=== PATIENT | female | born 1970 | race Caucasian/White ===

== ENCOUNTER 2025-02-17 17:30 | Emergency (ER) | payer OTHER, SELFPAY ==
--- OUTSIDE RECORDS SUMMARY | 2023-09-03 15:30 | XMS_ITS ---
Author Organization [facility] [employer] [facility] ([address]) Address [address] [place] [address] Care Team Providers Care Fiscal Accounting Clerk Name Role Phone Flavia Ramirez Primary Care Provider Unavailabl Connie Posey Unavailable [phone] Sid Mendoza Unavailable Unavailable [facility], Provider Unavailable Unavailab le Allergies Allergen (clinical drug ingredient) Drug/Non Drug Allergy documented on EMR Reaction Allergy Type Onset Date Status Information temporarily unavailable Bactrim Swelling Drug Allergy Active [facility] Conversion Encounter Medications Medication SIG (Take, Route, Frequency, Duration) Notes Start Date End Date Status Vitamin D3 125 MCG (5000 UT) 1 tab(s) orally once a day Active Phentermine HCl 37.5 MG 1 cap(s) orally once a day Active Testosterone 5 MG 1 ML ORALLY QD *Please review and pick correct strength-formula tion from [facility] options. If intended option is not shown, discontinue and re-order from Quick Search* Active Omeprazole 20 MG 1 cap(s) orally once a day Active Acyclovir 400 MG 1 tab(s) orally 2 times a day Active ZyrTEC Allergy 10 MG 1 tab(s) orally once a day; Duration: 30 day(s) Active NASONEX 50 MCG/INH 2 SPRAY(S) INTRANASALLY ONCE A DAY; Duration: 30 DAY(S) *Please review for potential replacement for e-prescription and drug interaction check* Active EpiPen 2-Toy 0.3 MG/0.3ML 0.3 mg intramuscularly once Active Progesterone 100 MG 2 cap(s) orally once a day (at bedtime) Active Ibuprofen 800 MG 1 tab(s) orally 3 times a day Active Ciprodex 0.3%-0.1% 4 GTT IN EACH AFFECTED EAR 2 TIMES A DAY *Please review and pick correct strength-formula tion from [employer] options. If intended option is not shown, discontinue and re-order from Quick Search* Active Patanase 665 MCG/INH 2 SPRAY(S) INTRANASALLY 2 TIMES A DAY; Duration: 30 DAY(S) *Please review and pick correct strength-formula tion from [employer] options. If intended option is not shown, discontinue and re-order from Quick Search* Active Montelukast Sodium 10 MG 1 tab(s) orally once a day (in the evening); Duration: 30 day(s) Active NASAL WASHES N/A DIRECTED INTRANASALLY NEEDED; Duration: 30 *Please review for potential replacement for e-prescription and drug interaction check* Active Omnaris 50 MCG/ACT 2 spray(s) intranasally once a day Active Flonase Allergy Relief 50 MCG/ACT 2 spray(s) intranasally (avoid nasal septum) once a day Not-Taking Ketotifen Fumarate 0.025% 1 GTT IN EACH AFFECTED EYE EVERY 8 HOURS; Duration: 10 DAY(S) *Please review and pick correct strength-formula tion from [employer] options. If intended option is not shown, discontinue and re-order from Quick Search* Active SIT (TRADITIONAL) VARIABLE PER SCHEDULE SC PER SCHEDULE *Please review for potential replacement for e-prescription and drug interaction check* Active Encounters Encounter Location Date Provider Diagnosis [address] [address] 09/03/2023 Provider [facility] Allergic rhinitis due to pollen J30.1 Assessments Encounter Date Diagnosis (ICD Code) Assessment Notes Treatment Notes Treatment Clinical Notes Section Notes 09/03/2023 Allergic rhinitis due to pollen (ICD-10 - J30.1) Plan Of Treatment Medication Medication Name Sig Start Date Stop Date Notes Omnaris 50 MCG/ACT 2 spray(s) intranasally once a day SIT (TRADITIONAL) VARIABLE PER SCHEDULE SC PER SCHEDULE *Please review for potential replacement for e-prescription and drug interaction check* Progress Notes * Lizeth NO ADOB:[birth year] (54 yo F)Acc No.[id number]:09/03/2023 Patient: Lizeth HICKEY Provider: Lynn robles Migration :1970 A ge:52 Y S ex:Female Date:09/03/2023 Address:[facility] [address] [place], [id number] Pcp:Flavia Ramirez Subjective: * Chief Complaints: * 1 . [facility] Conversion Encounter. * Medical History: * Medications: T aking Ketotifen Fumarate 0.025% SOLUTION 1 GTT IN EACH AFFECTED EYE EVERY 8 HOURS , Notes to Pharmacist: *Please review and pick correct strength-formulation from [employer] options. If intended option is not shown, discontinue and re-order from Quick Search*, Taking Ciprodex 0.3%-0.1% SUSPENSION 4 GTT IN EACH AFFECTED EAR 2 TIMES A DAY , Notes to Pharmacist: *Please review and pick correct strength-formulation from [employer] options. If intended option is not shown, discontinue and re-order from Quick Search*, Taking Montelukast Sodium 10 MG Tablet 1 tab(s) orally once a day (in the evening) , Taking Patanase 665 MCG/INH SPRAY 2 SPRAY(S) INTRANASALLY 2 TIMES A DAY , Notes to Pharmacist: *Please review and pick correct strength-formulation from [employer] options. If intended option is not shown, discontinue and re-order from Quick Search*, Taking NASAL WASHES N/A 1 QUART OF STERILIZED TAP WATER OR DISTILLED WATER, 1 TSP NACL, 1 PINCH OF BAKING SODA DIRECTED INTRANASALLY NEEDED , Notes to Pharmacist: *Please review for potential replacement for e-prescription and drug interaction check*, Taking ZyrTEC Allergy 10 MG Tablet 1 tab(s) orally once a day , Taking EpiPen 2-Toy 0.3 MG/0.3ML Solution Auto-injector 0.3 mg intramuscularly once , Taking NASONEX 50 MCG/INH SPRAY 2 SPRAY(S) INTRANASALLY ONCE A DAY , Notes to Pharmacist: *Please review for potential replacement for e-prescription and drug interaction check*, Taking Ibuprofen 800 MG Tablet 1 tab(s) orally 3 times a day , Taking Progesterone 100 MG Capsule 2 cap(s) orally once a day (at bedtime) , Taking Acyclovir 400 MG Tablet 1 tab(s) orally 2 times a day , Taking Phentermine HCl 37.5 MG Capsule 1 cap(s) orally once a day , Taking Vitamin D3 125 MCG (5000 UT) Tablet 1 tab(s) orally once a day , Taking Omeprazole 20 MG Capsule Delayed Release 1 cap(s) orally once a day , Taking Testosterone 5 MG LIQUID 1 ML ORALLY QD , Notes to Pharmacist: *Please review and pick correct strength-formulation from [employer] options. If intended option is not shown, discontinue and re-order from Quick Search*, Not-Taking/PRN Flonase Allergy Relief 50 MCG/ACT Suspension 2 spray(s) intranasally (avoid nasal septum) once a day * Allergies: B actrim: Swelling - Allergy. Objective: * Vitals: Assessment: * Assessment: 1. A llergic rhinitis due to pollen - J30.1 (Primary) Plan: * Treatment: * Billing Information: * Visit Code: * Procedure Codes: * Electronic signature of Ruthie MCMULLEN-Migration on 02/17/2025 at 06:57 PM OVERHEAD LINE WORKER Sign off status: Pending * Provider: Lynn robles Migration Date: 0 09/03/2023 Generated for Ruth peña/Cecilia/Dane on: 1 04/19/2024 06:57 PM OVERHEAD LINE WORKER
--- NOTE | ~2025-02-17 | XR_ITS ---
EXAMINATION: XR foot LT min 3V, 02/17/2025 18:20 HOSPICE SOCIAL WORKER HISTORY: pain COMPARISON: No comparisons available. Findings: No acute fracture or malalignment. No significant degenerative changes. Soft tissues unremarkable. Impression: No acute fracture or malalignment. Reviewed, dictated and finalized at location P. ICE SOCIAL WORKER Impression: No acute fracture or malalignment.
[2025-02-17 17:36] VITALS: BP 141/75; PULSE 98; RESP 20; TEMP 36.4; O2SAT 98
--- NOTE | 2025-02-17 18:46 | ED.EXTPRO ---
HPI - Extremity Problem General Chief complaint: Extremity Problem,Nontraumatic Stated complaint: left foot pain, got worse, no injury Time Seen by Provider: 02/17/25 18:19 History of Present Illness HPI Narrative: Patient is a 54-year-old female who presents ER with reports of pain to left foot. Aching over the plantar aspect of digits 3 and 4. No swelling or redness. Has increased pain with transfer weight. No known injury. Related Data Allergies Allergy/AdvReac Type Severity Reaction Status Date / Time sulfamethoxazole Allergy Unknown Hives / Verified 02/17/25 17:40 Red Face trimethoprim Allergy Unknown Hives / Verified 02/17/25 17:40 Red Face Review of Systems Constitutional: Constitutional: Reports no additional constitutional complaints Musculoskeletal: Musculoskeletal: Reports no additional musculoskeletal complaints Integumentary/Breasts: Skin/Breast: Reports system reviewed and no additional complaints, except as docu PMFSH Past Medical History Medical History (Updated 02/17/25 @ 18:50 by Alonzo Miller MD) Healthy female adult Exam Narrative: GENERAL: Well-appearing, well-nourished, and in no acute distress. HEAD: Normocephalic, atraumatic. HEART: Regular rate and rhythm. Normal peripheral pulses. EXTREMITIES: Normal range of motion. No edema. Tender palpation at MTP 3/4 without swelling or redness. More tender over the plantar aspect. SKIN: Warm, dry, no rash. NEURO: Alert and oriented x3. PSYCH: Normal mood and affect. Course Course Emergency Course: Discharge home with naproxen postop shoe. Follow-up with PCP or ortho. Vital Signs Vital signs: Vital Signs Temperature 97.6 F 02/17/25 17:36 Pulse Rate 98 02/17/25 17:36 Respiratory Rate 20 02/17/25 17:36 Blood Pressure 141/75 H 02/17/25 17:36 Pulse Oximetry 98 02/17/25 17:36 Oxygen Delivery Room Air 02/17/25 17:36 Temperature 97.6 F 02/17/25 17:36 Pulse Rate 98 02/17/25 17:36 Respiratory Rate 20 02/17/25 17:36 Blood Pressure 141/75 H 02/17/25 17:36 Pulse Oximetry 98 02/17/25 17:36 Oxygen Delivery Room Air 02/17/25 17:36 MDM - Extremity (Nontraumatic) Differential Diagnosis Differential diagnosis: Likely other (Foot fracture, foot sprain in, plantar fasciitis, gout) Imaging Data Radiologist's impression: ITS Impressions Foot X-Ray 02/17/25 18:39 Impression: No acute fracture or malalignment. Discharge Plan Discharge Clinical Impression: Sprain of metatarsophalangeal joint Patient Disposition: Home Condition: Stable Instructions: Foot Sprain (ED), P.R.I.C.E. Treatment (ED) Additional Instructions: Follow-up with your PCP or orthopedic surgery. Please call tomorrow to schedule your appointment. Take anti-inflammatories and use her hard-soled shoe to help with your discomfort. Patient Language: Qatari Prescriptions: New naproxen 375 mg tablet 375 mg PO BID Qty: 14 0RF Follow-up/Referrals: Ashley,ANTONIETTA Andrew [Primary Care Provider, Unknown] - 1 Week Marcial Rausch MD [Physician, Orthopedics] - 1 Week
--- OUTSIDE RECORDS SUMMARY | 2025-02-17 18:58 | XMS_ITS | Clinical Summary ---
Author Organization [facility] Address [address] [place] [address] Care Team Providers Care Meat Curer Name Role Phone Flavia Ramirez Primary Care Provider [phone] Allergies Active Allergy Reactions Criticality Noted Date Comments Sulfamethoxazole-Trimethoprim Swelling Medium 2018 swelling Medications ALPRAZolam (XANAX) 0.25 MG tablet Take 0.25 mg by mouth 2 (two) times daily as needed. 11/16/2021 Active ADDERALL XR 20 MG 24 hr capsule Take by mouth every morning. 11/16/2021 Active ARIPiprazole (ABILIFY) 5 MG tablet Take 5 mg by mouth every morning. 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, initial encounter 01/05/2022 De Quervain's disease (radial styloid tenosynovi tis) 01/05/2022 S/P ORIF (open reduction internal fixation) frac ture 01/05/2022 Social History Tobacco Use Types Packs/Day Years Used Date Smoking Tobacco: Never Smokeless Tobacco: Never Tobacco Cessation:Counseling Given: No Alcohol Use Standard Drinks/Week Comments Never 0 (1 standard drink = 0.6 oz pur e alcohol) PHQ-2 Answer Date Recorded PHQ-2 Score - If the patient scores above 3, please move on to questions 3-9 0 11/24/2021 Comments Unknown Sex and Gender Information Value Date Recorded Sex Assigned at Not on file Legal Sex Female 7:52 PM CDT Gender Identity Not on file Sexual Orientation Not on file Last Filed Vital Signs Vital Sign Reading Time Taken Comments Blood Pressure 120/73 01/05/2022 8:48 AM CDT Pulse 77 01/05/2022 8:48 AM CDT Temperature 36.1 C (96.9 F) 11/24/2021 8:37 AM CDT Respiratory Rate - - Oxygen Saturation 100% 11/24/2021 8:37 AM CDT Inhaled Oxygen Concentration - - Weight 81.7 kg (180 lb 3.2 oz) 01/05/2022 8:48 A M CDT Height 160 cm (5' 3) 01/05/2022 8:48 AM CDT Body Mass Index 31.92 01/05/2022 8:48 AM CDT Plan of Treatment Health Maintenance Due Date Last Done Comments Cervical Cancer Screening Pap Smear (Age 30 to 64) Every 3 Years 1970 Colorectal Cancer Screening Colonoscopy (10 Years) 1970 Annual Physical 1973 Hepatitis C 1988 Hepatitis B Vaccines (1 of 3 - 19+ 3-dose series) 1989 Cervical Cancer Screening Pap with HPV Testing (Age 30 to 64) Every 5 Years 2000 Cervical Cancer Screening with HPV 2000 Mammogram Screening 2010 Pneumococcal Vaccine: 50+ Years (1 of 1 - PCV) 2020 COVID-19 Vaccine (3 - 2024- season) 2024 07/12/2020, 06/21/2020 Influenza Adult (#1) 2024 02/11/2023, 02/01/2022, 12/19/2020, Additional history exists DTaP, Tdap and Td Vaccines (3 - Td or Tdap) 04/13/2027 04/13/2017, 05/29/2007 Zoster Vaccines Completed 12/23/2020, 09/12/2020 Hepatitis A Vaccines Aged Out No long er eligible based on patient's age to complete this topic Meningococcal B Vaccine Aged Out No l onger eligible based on patient's age to complete this topic Meningococcal Vaccine Aged Out No jevon priyanka eligible based on patient's age to complete this topic RSV Immunizations Under 20 Months Aged Out No longer eligible based on patient's age to complete [place] [address] [employer] [facility] Care Teams Meat Curer Relationship Specialty Start Date End Date Flavia Ramirez PA [address] [place] [address] PCP - General FAMILY PRACTICE 07/15/21
--- OUTSIDE RECORDS SUMMARY | 2025-02-17 18:58 | XMS_ITS | Patient Health Record ---
Author Organization [facility] [place] ([address]) Address [address] [place] [address] Care Team Providers Care Health Record Technician Name Role Phone Jeanalonnie Flavia Primary Care Provider UnavailConnie Altamirano Unavailable [phone] Sid Mendoza Unavailable Unavailable Allergies Allergen (clinical drug ingredient) Drug/Non Drug Allergy documented on EMR Reaction Allergy Type Onset Date Status Information temporarily unavailable Bactrim Swelling Drug Allergy Active Reason For Referral No Information Medications Medication SIG (Take, Route, Frequency, Duration) Notes Start Date End Date Status PHENTERMINE 37.5 mg 1 cap(s) orally once a day Active VITAMIN D3 5000 intl units 1 tab(s) orally once a day Active OMEPRAZOLE 20 mg 1 cap(s) orally once a day Active TESTOSTERONE 5 mg 1 ml orally QD Active Vitamin D3 125 MCG (5000 UT) 1 tab(s) orally once a day Active Phentermine HCl 37.5 MG 1 cap(s) orally once a day Active Testosterone 5 MG 1 ML ORALLY QD *Please review and pick correct strength-formula tion from [employer] options. If intended option is not shown, discontinue and re-order from Quick Search* Active Omeprazole 20 MG 1 cap(s) orally once a day Active IBUPROFEN 800 mg 1 tab(s) orally 3 times a day Active PROGESTERONE 100 mg 2 cap(s) orally once a day (at bedtime) Active ACYCLOVIR 400 mg 1 tab(s) orally 2 times a day Active Flonase Allergy Relief 50 MCG/ACT 2 spray(s) intranasally (avoid nasal septum) once a day Not-Taking Omnaris 50 MCG/ACT 2 spray(s) intranasally once a day Active ZYRTEC 10 mg 1 tab(s) orally once a day; Duration: 30 day(s) Active Ketotifen Fumarate 0.025% 1 GTT IN EACH AFFECTED EYE EVERY 8 HOURS; Duration: 10 DAY(S) *Please review and pick correct strength-formula tion from [employer] options. If intended option is not shown, discontinue and re-order from Quick Search* Active SIT (TRADITIONAL) VARIABLE PER SCHEDULE SC PER SCHEDULE *Please review for potential replacement for e-prescription and drug interaction check* Active EPIPEN 2-TOY 0.3 mg 0.3 mg intramuscularly once Active KETOTIFEN OPHTHALMIC 0.025% 1 gtt in each affected eye every 8 hours; Duration: 10 day(s) Active CIPRODEX 0.3%-0.1% 4 gtt in each affected ear 2 times a day Active MONTELUKAST SODIUM 10 mg 1 tab(s) orally once a day (in the evening); Duration: 30 day(s) Active PATANASE 665 mcg/inh 2 spray(s) intranasally 2 times a day; Duration: 30 day(s) Active OMNARIS 50 mcg/inh 2 spray(s) intranasally once a day Active Ciprodex 0.3%-0.1% 4 GTT IN EACH AFFECTED EAR 2 TIMES A DAY *Please review and pick correct strength-formula tion from [employer] options. If intended option is not shown, discontinue and re-order from Quick Search* Active Patanase 665 MCG/INH 2 SPRAY(S) INTRANASALLY 2 TIMES A DAY; Duration: 30 DAY(S) *Please review and pick correct strength-formula tion from [employer] options. If intended option is not shown, discontinue and re-order from Quick Search* Active Montelukast Sodium 10 MG 1 tab(s) orally once a day (in the evening); Duration: 30 day(s) Active FLONASE 0.05 mg/inh 2 spray(s) intranasally (avoid nasal septum) once a day Not-Taking ZyrTEC Allergy 10 MG 1 tab(s) orally once a day; Duration: 30 day(s) Active NASAL WASHES N/A DIRECTED INTRANASALLY NEEDED; Duration: 30 *Please review for potential replacement for e-prescription and drug interaction check* Active NASONEX 50 MCG/INH 2 SPRAY(S) INTRANASALLY ONCE A DAY; Duration: 30 DAY(S) *Please review for potential replacement for e-prescription and drug interaction check* Active EpiPen 2-Toy 0.3 MG/0.3ML 0.3 mg intramuscularly once Active Progesterone 100 MG 2 cap(s) orally once a day (at bedtime) Active Ibuprofen 800 MG 1 tab(s) orally 3 times a day Active Acyclovir 400 MG 1 tab(s) orally 2 times a day Active Immunizations Vaccine Route Administration Date Status Comme nts NOC Influenza-Fluzone 0 06/19/2012 Administered Problems Problem Type SNOMED Code ICD Code Onset Dates Problem Status W/U Status Risk Notes Problem Information temporarily unavailable Shortness of breath (R06.02) Active confirmed Problem Information temporarily unavailable Other chronic nonsuppurative otitis media, left ear (H65.492) Active confirmed Problem Information temporarily unavailable Other allergic rhinitis (J30.89) Active confirmed Problem Information temporarily unavailable Other chronic sinusitis (J32.8) Active confirmed Problem Information temporarily unavailable Allergic rhinitis due to pollen (J30.1) Active confirmed Problem Information temporarily unavailable Allergic rhinitis due to animal (cat) (dog) hair and dander (J30.81) Active confirmed Problem Information temporarily unavailable Other chronic allergic conjunctivitis (H10.45) Active confirmed Plan Of Treatment No Information Medical (General) History Medical History History ICD Code Allergic rhinitis and conjunctivitis Chronic sinusitis s/p ESS 06/2013 GERD [Gastroesophageal reflux disease] Surgical History Surgery Date(Month/Year) Left ear tube - Dr. Mendoza 09/2013 Sinus Surgery - Dr. Mendoza 06/2013 Hysterectomy 2013 Endometrial Ablation 2010
--- OUTSIDE RECORDS SUMMARY | 2025-02-17 18:58 | XMS_ITS | Clinical Summary ---
Author Organization [address] Address [address] [address] Care Team Providers Care Rn Enterostomal Name Role Phone Flavia Ramriez Primary Care Provider [phone] Duc Rapp MD Unavailable [phone] Allergies Active Allergy Reactions Criticality Noted Date Comments Sulfamethoxazole-Trimethoprim Swelling Medium 2018 swelling Medications ALPRAZolam (XANAX) 0.25 mg tabletIndication s:Panic Disorder Take 1 tablet (0.25 mg total) by mouth 2 (two) times a day 20 tablet 021 Active ARIPiprazole (ABILIFY) 5 mg tabletIndication s:Acute stress reaction causing mixed disturbance of emotion and conduct Take 1 tablet (5 mg total) by mouth every morning 022 Active benztropine (COGENTIN) 0.5 mg tablet Take 1 tablet (0.5 mg total) by mouth daily 023 Active triamcinolone (KENALOG) 0.1 % creamIndications :Flexural eczema Apply topically 2 (two) times a day 15 g 3 024 Active alcohol swabs pads, medicatedIndicat ions:Type 2 diabetes mellitus with hyperlipidemia (HCC) Testing BID. Testing due to hyperglycemia and hypoglycemia. 100 each 11 024 Active dextroamphetamin e-amphetamine XR (ADDERALL XR) 20 mg 24 hr capsule Take 1 capsule (20 mg total) by mouth every morning [address] (CYMBALTA) 30 mg capsule Take by mouth daily 024 Active albuterol HFA (ProAir HFA) 90 mcg/actuation inhalerIndicatio ns:Mild intermittent asthma without complication Inhale 2 puffs every 4 (four) hours as needed for wheezing or shortness of breath 3 each 025 2025 Active cholecalciferol (VITAMIN D-3) 5,000 unit capsuleIndicatio ns:Vitamin D deficiency Take 2 capsules (10,000 Units total) by mouth daily 180 capsule 3 025 2025 Active FLUoxetine (PROzac) 40 mg capsuleIndicatio ns:Generalized anxiety disorder,Moderat e episode of recurrent major depressive disorder (HCC) Take 1 capsule (40 mg total) by mouth daily 90 capsule 3 025 Active metFORMIN XR (GLUCOPHAGE XR) 500 mg 24 hr tabletIndication s:Type 2 diabetes mellitus with hyperlipidemia (HCC) Take 1 tablet (500 mg total) by mouth daily with breakfast 90 tablet 025 2025 Active montelukast (SINGULAIR) 10 mg tabletIndication s:Seasonal allergies Take 1 tablet (10 mg total) by mouth nightly 90 tablet 025 2025 Active omeprazole (PriLOSEC) 20 mg capsuleIndicatio ns:Gastroesophag eal reflux disease without esophagitis Take 2 capsules (40 mg total) by mouth 2 (two) times a day 360 capsule 3 025 2025 Active atorvastatin (LIPITOR) 10 mg tabletIndication s:Mixed hyperlipidemia Take 1 tablet (10 mg total) by mouth daily 90 tablet 3 025 2025 Active lisinopriL (PRINIVIL,ZESTRI L) 2.5 mg tabletIndication s:Type 2 diabetes mellitus with hyperlipidemia (HCC) Take 1 tablet (2.5 mg total) by mouth daily 90 tablet 3 025 2025 Active blood glucose diagnostic (glucose blood) stripIndications :Type 2 diabetes mellitus with hyperlipidemia (HCC) Testing BID. Testing due to hyperglycemia and hypoglycemia. 100 each 025 Active blood-glucose meter miscIndications: Type 2 diabetes mellitus with hyperlipidemia (HCC) Testing BID. New DX: DM. Testing BID due to hyperglycemia and hypoglycemia 1 each 025 Active lancets miscIndications: Type 2 diabetes mellitus with hyperlipidemia (HCC) Testing BID. Testing due to hyperglycemia and hypoglycemia. 100 each 11 025 Active ibuprofen (ADVIL,MOTRIN) 800 mg tabletIndication s:Acute pain of left shoulder,Acute pain of right shoulder Take 1 tablet (800 mg total) by mouth every 6 (six) hours as needed for pain (pain) 90 tablet 3 025 Active cetirizine (ZyrTEC) 10 mg tablet daily Active acyclovir (ZOVIRAX) 400 mg tablet every 12 hours Activ e fluticasone propionate (Flonase Allergy Relief) 50 mcg/actuation nasal spray daily Active EPINEPHrine (EpiPen 2-Toy) 0.3 mg/0.3 mL auto-injection syringe 0.3 mg intramuscularly once Active ciclesonide (Omnaris) 50 mcg nasal spray daily Active mometasone (Nasonex 24hr Allergy) 50 mcg/actuation nasal spray daily Active progesterone (PROMETRIUM) 100 mg capsule 2 cap(s) orally once a day (at bedtime) Active semaglutide (Ozempic) 0.25 mg or 0.5 mg (2 mg/3 mL) pen injector injection Inject 0.25 mg under the skin once a week 1.5 mL 1 025 Active semaglutide (OZEMPIC) 0.25 mg or 0.5 mg(2 mg/1.5 mL) pen injector injectionIndicat ions:type 2 diabetes mellitus Inject 0.25 mg under the skin every 7 days 0.75 mL 025 2024 Discontinued Active Problems Problem Noted Date Diagnosed Date Generalized anxiety disorder 09/28/2024 Assessment & Plan (09/28/2024 1:16 PM CDT): Chronic, stable, continue Prozac. Also followed by Psychiatry Orders: FLUoxetine (PROzac) 40 mg capsule; Take 1 capsule (40 mg total) by mouth daily Moderate episode of recurrent major depressive d isorder 09/28/2024 Assessment & Plan (09/28/2024 1:16 PM CDT): Chronic, stable, continue Prozac. Also followed by Psychiatry Orders: FLUoxetine (PROzac) 40 mg capsule; Take 1 capsule (40 mg total) by mouth daily Type 2 diabetes mellitus with hyperlipidemia Assessment & Plan (01/02/2025 8:31 AM CDT): Chronic, A1c controlled at 6.5. Patient does want to start a G LP 1 medication to help with her diabetes and help with weight loss. Patient/parent was counseled on medication risk, side effects, and possible complications. Patient/parent was counseled on how to properly take the medication and to call with any adverse reactions. Patient/parent stated understanding. The risk of GLP 1 receptor agonist medications: -risk of thyroid cancer -risk of pancreatitis -risk of gallbladder disease -risk of low blood sugar -risk of kidney injury/worsening kidney function -angioedema, a severe allergic reaction -diabetic retinopathy, or a diabetic eye disease that can develop with this medication -heart rate increases -depression, with a risk of suicidal thoughts. Follow-up in 3 months. Will order labs in 3 months. Patient will send us an update in 4 weeks with her sugar readings and weight loss. Inform patient if her sugar readings became low we would have to hold metformin Assessment & Plan (09/28/2024 1:16 PM CDT): Chronic, stable, A1c 6.3. Goal is less than 7. Patient will continue metformin. Patient has an eye exam scheduled for October. Orders: metFORMIN XR (GLUCOPHAGE XR) 500 mg 24 hr tablet; Take 1 tablet (500 mg total) by mouth daily with breakfast blood glucose diagnostic (glucose blood) strip; Testing BID. Testing due to hyperglycemia and hypoglycemia. lancets misc; Testing BID. Testing due to hyperglycemia and hypoglycemia. lisinopriL (PRINIVIL,ZESTRIL) 2.5 mg tablet; Take 1 tablet (2.5 mg total) by mouth daily Assessment & Plan (09/09/2023 1:03 PM CDT): New diagnosis Discussed labs Quarterly- biannual A1c %. Diabetic eye exam annually Urine for microalbumin annually (ordered for next lab work) Monofilament foot exam annually. Check feet daily for ulcers/lesion/sores. BP Goal < 130/85 Lipid annually, Goal <100 Patient on a statin Patient on AMADEO inhibitor or ARB Immunizations (PPSV23, Tdap, Influenza, Hepatitis B) reviewed needed immunizations Taking baby aspirin daily, 81mg Smoking status, nonsmoker Check blood sugars daily (fasting in am and 2 hrs after meal as needed). Goals fasting < 110-120. 2 hrs after meals < 140-160. Signs and symptoms of hypoglycemia discussed and how to treat with orange juice or [id number] sugar packets. Continue on current medications, side effects discussed Encouraged healthy, low carbohydrate diet and CV exercise five times a week for 30 mins a time recommended Counseled on diabetes course and progression. Handout packet given (if needed). RTC 3 months Seasonal allergies 07/28/2020 Assessment & Plan (09/28/2024 1:16 PM CDT): Orders: montelukast (SINGULAIR) 10 mg tablet; Take 1 tablet (10 mg total) by mouth nightly Assessment & Plan (07/23/2024 3:08 PM CDT): Chronic, uncontrolled Start montelukast daily Intolerance to antihistamines w/ side effect of thrush Intolerance to flonase Orders: montelukast (SINGULAIR) 10 mg tablet; Take 1 tablet (10 mg total) by mouth nightly Assessment & Plan (08/19/2023 3:21 PM CDT): Stable, continue [id number] allergy meds as needed Assessment & Plan (02/01/2022 12:02 PM REHAB RN): Stable, takes meds as needed Assessment & Plan (07/28/2020 2:34 PM CDT): Uncontrolled. Refilled nasal spray Attention deficit hyperactiv ity disorder (ADHD), predominantly inattentive type 01/25/2020 Assessment & Plan (08/19/2023 3:21 PM CDT): Followed by psychiatrist Assessment & Plan (02/01/2022 12:01 PM REHAB RN): Followed by Psychiatry, stable Assessment & Plan (09/12/2020 10:30 AM CDT): Uncontrolled. Patient reports no side effects from the medication. She does want to increase the dose. Assessment & Plan (07/28/2020 2:33 PM CDT): Uncontrolled. Patient will stop Ritalin. Will try Adderall XR. Follow-up in 2 weeks by my chart in 4 weeks for an appointment. Patient/parent was counseled on medication risk, side effects, and possible complications. Patient/parent was counseled on how to properly take the medication and to call with any adverse reactions. Patient/parent stated understanding. Assessment & Plan (02/22/2020 9:39 AM REHAB RN): Uncontrolled. Increase methylphenidate from 10 mg to 20 mg. Follow-up through my chart in 4 weeks. Appointment in 3 months Assessment & Plan (01/25/2020 12:29 PM REHAB RN): New diagnosis. Counseled patient on treatment options. Patient started on meds. Follow-up in 4 weeks. Patient/parent was counseled on medication risk, side effects, and possible complications. Patient/parent was counseled on how to properly take the medication and to call with any adverse reactions. Patient/parent stated understanding. Health maintenance examination 03/31/2019 Overview (09/28/2024): PMH: 09/28/24 Last pap: hyst Last mammogram:08/2023 Last dexa: Last colonoscopy/cologuard: 10/26/23 repeat 2028 Last tdap:04/13/2017 Last Prevnar/pneumovax: 07/23/24 Last Shingrix: completed Last eye exam: 11/30/23 Assessment & Plan (09/28/2024 1:16 PM CDT): PMH: 09/28/24 Last pap: hyst Last mammogram:08/2023 Last dexa: Last colonoscopy/cologuard: 10/26/23 repeat 2028 Last tdap:04/13/2017 Last Prevnar/pneumovax: 07/23/24 Last Shingrix: completed Last eye exam: 11/30/23 Assessment & Plan (08/19/2023 2:09 PM CDT): PMH: 08/19/23 Last pap: hyst Last mammogram:05/2022 Last dexa: Last colonoscopy/cologuard: 10/2020 repeat 2023 Last tdap:04/13/2017 Last Prevnar/pneumovax: Last Shingrix: completed Last eye exam: 2021 Assessment & Plan (02/01/2022 10:50 AM REHAB RN): PMH: 02/01/2022 Last pap: hyst Last mammogram:2013, 05/14/2019, 10/2020 Last dexa: Last colonoscopy/cologuard: 10/2020 repeat 2023 Last tdap:04/13/2017 Last Prevnar/pneumovax: Last Shingrix: completed Last eye exam: 2021 Assessment & Plan (07/28/2020 2:16 PM CDT): PMH: 07/28/2020 Last pap: hyst Last mammogram:2013, 05/14/2019 Last dexa: Last colonoscopy/cologuard: referral to gi Last tdap:04/13/2017 Last Prevnar/pneumovax: Last Shingrix: due age 50 Last eye exam: Ordered mammogram Assessment & Plan (04/18/2019 1:31 PM REHAB RN): PMH: 04/18/2019 Last pap: hyst Last mammogram:2013, ordered Last dexa: Last colonoscopy/cologuard: info given on cologuard. Last tdap:04/13/2017 Last Prevnar/pneumovax: Last Shingrix: Last eye exam: Eczema 01/30/2016 Assessment & Plan (08/19/2023 3:20 PM CDT): Stable, continue Kenalog cream as needed Assessment & Plan (02/01/2022 12:01 PM REHAB RN): Stable, continue Kenalog cream as needed Assessment & Plan (07/28/2020 2:33 PM CDT): Stable Assessment & Plan (04/18/2019 1:31 PM REHAB RN): stable Class 2 severe obesity due t o excess calories with serious comorbidity and body mass index (BMI) of 35.0 to 35.9 in adult 01/30/2016 Assessment & Plan (01/02/2025 8:31 AM CDT): Educated patient on healthy diet/exercise plan. Exercise 150min-300min per week of moderate intensity. Diet: good, healthy protein (eggs, nuts, peanut butter, chicken, fish, turkey, less pork/beef), lots of vegetables, less carbohydrates and less sugar. Assessment & Plan (09/28/2024 1:16 PM CDT): Educated patient on healthy diet/exercise plan. Exercise 150min-300min per week of moderate intensity. Diet: good, healthy protein (eggs, nuts, peanut butter, chicken, fish, turkey, less pork/beef), lots of vegetables, less carbohydrates and less sugar. Assessment & Plan (05/25/2024 10:21 AM REHAB RN): BMI Follow-up includes: education provided. Assessment & Plan (08/19/2023 3:21 PM CDT): Educated patient on healthy diet/exercise plan. Exercise 150min-300min per week of moderate intensity. Diet: good, healthy protein (eggs, nuts, peanut butter, chicken, fish, turkey, less pork/beef), lots of vegetables, less carbohydrates and less sugar. Assessment & Plan (02/01/2022 12:01 PM REHAB RN): Uncontrolled. Goal of BMI is less than 30 Educated patient on healthy diet/exercise plan. Exercise 150min-300min per week of moderate intensity. Diet: good, healthy protein (eggs, nuts, peanut butter, chicken, fish, turkey, less pork/beef), lots of vegetables, less carbohydrates and less sugar. Assessment & Plan (07/28/2020 2:33 PM CDT): Educated patient on healthy diet/exercise plan. Exercise 150min-300min per week of moderate intensity. Diet: good, healthy protein (eggs, nuts, peanut butter, chicken, fish, turkey, less pork/beef), lots of vegetables, less carbohydrates and less sugar. Assessment & Plan (02/22/2020 9:39 AM REHAB RN): Educated patient on healthy diet/exercise plan. Exercise 150min-300min per week of moderate intensity. Diet: good, healthy protein (eggs, nuts, peanut butter, chicken, fish, turkey, less pork/beef), lots of vegetables, less carbohydrates and less sugar. Assessment & Plan (01/25/2020 12:29 PM REHAB RN): Educated patient on healthy diet/exercise plan. Exercise 150min-300min per week of moderate intensity. Diet: good, healthy protein (eggs, nuts, peanut butter, chicken, fish, turkey, less pork/beef), lots of vegetables, less carbohydrates and less sugar. Assessment & Plan (08/27/2019 11:45 AM CDT): Educated patient on healthy diet/exercise plan. Exercise 150min-300min per week of moderate intensity. Diet: good, healthy protein (eggs, nuts, peanut butter, chicken, fish, turkey, less pork/beef), lots of vegetables, less carbohydrates and less sugar. Assessment & Plan (04/18/2019 1:30 PM REHAB RN): Educated patient on healthy diet/exercise plan. Exercise 150min-300min per week of moderate intensity. Diet: good, healthy protein (eggs, nuts, peanut butter, chicken, fish, turkey, less pork/beef), lots of vegetables, less carbohydrates and less sugar. Esophageal reflux 01/28/2016 Assessment & Plan (09/28/2024 1:16 PM CDT): Chronic, stable, continue omeprazole Orders: omeprazole (PriLOSEC) 20 mg capsule; Take 2 capsules (40 mg total) by mouth 2 (two) times a day Assessment & Plan (08/19/2023 3:21 PM CDT): Stable, continue Prilosec, refer to GI for throat stretching Assessment & Plan (02/01/2022 12:01 PM REHAB RN): Stable, continue Prilosec as needed Assessment & Plan (07/28/2020 2:33 PM CDT): Stable, continue meds Assessment & Plan (04/18/2019 1:31 PM REHAB RN): Stable on meds Genital herpes 01/28/2016 Assessment & Plan (08/19/2023 3:21 PM CDT): Stable, no preventative meds at this time Assessment & Plan (02/01/2022 12:01 PM REHAB RN): Stable, takes meds as needed Assessment & Plan (07/28/2020 2:33 PM CDT): Stable p.r.n. meds Assessment & Plan (04/18/2019 1:31 PM REHAB RN): Daya, prn meds Mixed hyperlipidemia 01/28/2016 Assessment & Plan (09/28/2024 1:16 PM CDT): Chronic, stable, patient will restart Lipitor. Orders: atorvastatin (LIPITOR) 10 mg tablet; Take 1 tablet (10 mg total) by mouth daily Assessment & Plan (09/09/2023 1:02 PM CDT): New issue. Patient will start Lipitor 10 mg.Patient/parent was counseled on medication risk, side effects, and possible complications. Patient/parent was counseled on how to properly take the medication and to call with any adverse reactions. Patient/parent stated understanding. Repeat labs in 3 months Assessment & Plan (08/19/2023 3:21 PM CDT): Diet controlled, check labs Assessment & Plan (02/01/2022 12:01 PM REHAB RN): Stable, diet controlled, check labs Assessment & Plan (09/12/2020 10:30 AM CDT): Diet controlled. Heart risk less than 5%. Plan to repeat labs in 1 year Assessment & Plan (07/28/2020 2:34 PM CDT): Images from the original note were not included. Diet controlled, check labs. Patient informed the lab/xray results will be sent to the [employer]. They are to log in and view the results and any notes/messages/plans/orders. They should call the office with any questions. Assessment & Plan (04/18/2019 1:31 PM REHAB RN): Diet controlled. Check labs Vitamin D deficiency 01/28/2016 Assessment & Plan (09/28/2024 1:16 PM CDT): Chronic, stable, continue vitamin-D Orders: cholecalciferol (VITAMIN D-3) 5,000 unit capsule; Take 2 capsules (10,000 Units total) by mouth daily Assessment & Plan (08/19/2023 3:21 PM CDT): Stable, continue vitamin-D Assessment & Plan (02/01/2022 12:02 PM REHAB RN): Stable, continue vitamin-D, check labs Assessment & Plan (09/12/2020 10:30 AM CDT): Stable, continue vitamin Assessment & Plan (07/28/2020 2:34 PM CDT): Stable, check labs, continue vitamin-D Assessment & Plan (05/16/2019 9:49 AM REHAB RN): Stable, refilled meds Assessment & Plan (04/18/2019 1:31 PM REHAB RN): Continue vit d Resolved Problems Problem Noted Date Diagnosed Date Resolved Date Other intra-abdominal and pe lvic swelling, mass and lump 07/23/2024 09/28/2024 Assessment & Plan (07/23/2024 3:10 PM CDT): Acute, new problem US to further evaluate Labs ordered for CPE - CBC and CMP included - get labs done and will determine if acute findings - schedule CPE after 08/18 Orders: US Abdominal Mass/Hernia; Future De Quervain's disease (radia l styloid tenosynovitis) 01/05/2022 02/01/2022 Injury of triangular fibroca rtilage complex of right wrist 01/05/2022 02/01/2022 Closed fracture of right distal radius 02/02/2021 02/01/2022 Mild intermittent asthma with exacerbation 01/07/2021 02/01/2022 Assessment & Plan (01/07/2021 5:49 PM CDT): Will start steroids We discussed checking a chest x-ray, because she is clear she does want to hold off. Continue her inhaler as needed Send a message to either ANTONIETTA Ramirez or myself to let us know how she is doing. Acute non-recurrent frontal sinusitis 01/07/2021 02/01/2022 Assessment & Plan (01/07/2021 4:06 PM CDT): Discussed viral nature of illness, treat symptomatically Tylenol/ibuprofen as needed, and can use medicine like mucinex or robitussin to help with the cough Increase fluids, rest and handwashing Warm saltwater gargles Consider a hot drink with honey Saline rinses to nose at least twice daily Cool mist humidifier May use vicks vaporub on chest and feet as needed to help with cough Please call if symptoms change or worsen, to the ER for anything emergent Acute stress reaction chaparrita villafana mixed disturbance of emotion and conduct 04/18/201909/28 Assessment & Plan (08/19/2023 3:21 PM CDT): Followed by psychiatrist Assessment & Plan (02/01/2022 12:01 PM REHAB RN): Followed by Psychiatry, stable Assessment & Plan (09/12/2020 10:29 AM CDT): Uncontrolled. Patient has an upcoming appointment with Psychiatry. Since we are increasing the Adderall will wait to increase the fluoxetine. Patient will discussed change of fluoxetine or increase in meds at her upcoming appointment Assessment & Plan (07/28/2020 2:32 PM CDT): Stable, continue meds. Follow-up in 6 months Assessment & Plan (01/25/2020 12:29 PM REHAB RN): Patient reports stable on Prozac 40 mg. Continue current dose. Follow-up in 4 weeks Assessment & Plan (08/27/2019 11:56 AM CDT): Stable, except occasional panic attacks. Trial of xanax if needed. Patient/parent was counseled on medication risk, side effects, and possible complications. Patient/parent was counseled on how to properly take the medication and to call with any adverse reactions. Patient/parent stated understanding. Recommend seeing counseling for PTSD> Assessment & Plan (05/16/2019 9:49 AM REHAB RN): Controlled, continue meds and fu in 3months Assessment & Plan (04/18/2019 1:32 PM REHAB RN): New dx: Concern about ADHD, referral to counselor for evaluation. Start meds. Patient/parent was counseled on medication risk, side effects, and possible complications. Patient/parent was counseled on how to properly take the medication and to call with any adverse reactions. Patient/parent stated understanding. F/u 2 wks. Emotional lability 06/23/2015 0 Elevated fasting glucose 02/24/2015 Assessment & Plan (08/19/2023 3:21 PM CDT): Diet controlled, check labs Assessment & Plan (02/01/2022 12:01 PM REHAB RN): Diet controlled, check A1c Assessment & Plan (09/12/2020 10:30 AM CDT): A1c okay. Glucose elevated. Patient will work on low carb/low sugar diet Assessment & Plan (07/28/2020 2:33 PM CDT): Diet controlled, stable, check labs Assessment & Plan (04/18/2019 1:30 PM REHAB RN): Check labs Menopausal symptoms 02/03/2015 04/18/19 20 Encounters Date Type Department Care Team Description 01/02/2025 8:00 AM CDT Office Visit [facility] [address] [place] [phone] Flavia Ramirez PA Type 2 diabetes mellitus with hyperlipidemia (HCC) (Primary Dx); Encounter for administration of vaccine; Class 2 severe obesity due to excess calories with serious comorbidity and body mass index (BMI) of 35.0 to 35.9 in adult; Screening mammogram for breast cancer from Last 3 Months Immunizations Immunization Administration Dates Next Due H1N1 Nasal 01/23/2009 Influenza LAIV (Nasal) 01/11/2014,01/05/2013 Influenza, Quadrivalent, Spl it, Preservative Free, Intramuscular 02/11/2023,02/01/2022,01/15/2020,02/20,02/14/2018,02/08/2017,01/14/2016 ,01/13/2015 Influenza, Split 02/24/2005 Influenza, Trivalent, Preser vative Free, Intramuscular 01/02/2025,12/13/2023,02/14/2018 Influenza, Unspecified 12/19/2020,2020(Deferred: Patient Refused),02/20/2019 Pfizer SARS-CoV-2 Monovalent Vaccination (12+ Yrs) PURPLE 07/12/2020,06/21/2020 Pneumococcal Conjugate Pcv20 07/23/2024 Tdap 04/13/2017,05/29/2007 ZOSTER Recombinant 12/23/2020,09/12/2020 Surgical History Surgery Date Site/Laterality Comments TYMPANOSTOMY TUBE PLACEMENT 03/21/2012 - 03/20/2013 Left CERVICAL BIOPSY W/ LOOP ELEC TRODE EXCISION 03/21/2000 - 03/20/2001 NASAL SEPTUM SURGERY 03/21/2012 - 03/20/2013 LAPAROSCOPIC ENDOMETRIOSIS FULGURATION 03/21/2009 - 02/20 LAPAROSCOPICALLY ASSISTED VA GINAL HYSTERECTOMY 03/21/2012 - 03/20/2013 BILATERAL SALPINGOOPHORECTOMY 03/21/2012 - 03/20/2013 BLADDER SUSPENSION 03/21/2012 - 03/20/2013 TVT OVARIAN CYST REMOVAL 03/21/1994 - 03/20/1995 TUBAL LIGATION 03/21/2003 - 03/20/2004 WRIST FRACTURE SURGERY 01/19/2021 - 02/17/2021 Right Medical History Medical History Date Comments History of abnormal cervical Pap smear History of endometriosis Resolve d after hysterectomy Vitamin D deficiency Hyperlipidemia States was told by PCP that cholesterol was climbing, no meds for Eczema Elevated fasting glucose 02/24/2015 Emotional lability 06/23/2015 Menopausal symptoms 02/03/2015 Mixed hyperlipidemia 01/28/2016 Motion sickness Asthma Uses inhaler PRN GERD (gastroesophageal reflux disease) Controlled with meds Esophageal reflux 01/28/2016 ADHD (attention deficit hype ractivity disorder) Depression Controlled with meds Genital herpes Pt states has no t had a flare up recently Closed fracture of right distal radius De Quervain's disease (radia l styloid tenosynovitis) 01/05/2022 Injury of triangular fibroca rtilage complex of right wrist 01/05/2022 Mild intermittent asthma wit h exacerbation 01/07/2021 Other intra-abdominal and pe lvic swelling, mass and lump 07/23/2024 Family History Medical History Relation Name Comments Hypertension Father Dementia Maternal Grandfather Cancer Maternal Grandmother Alcohol abuse Mother Anxiety disorder Mother Depression Mother Endometriosis Mother Hypertension Paternal Grandfather Stroke Paternal Grandfather Hyperlipidemia Paternal Grandmother Hypertension Paternal Grandmother Endometriosis Sister Relation Name Status Comments Father Alive Maternal Grandfather Alive Maternal Grandmother Mother Alive Paternal Grandfather Paternal Grandmother Sister Alive Social History Tobacco Use Types Packs/Day Years Used Date Smoking Tobacco: Former Cigarettes 0 08/11/1991 - 08/11/2011 Smokeless Tobacco: Former Tobacco Cessation:Counseling Given: Not Answered Alcohol Use Standard Drinks/Week Comments Yes 0 (1 standard drink = 0.6 oz pur e alcohol) PHQ-2 Answer Date Recorded PHQ-2 Total Score (If total score is 3 or more points, staff should administer the PHQ-9) 0 01/02/2025 PHQ-9 Answer Date Recorded PHQ-9 Total Score 3 09/28/2024 AUDIT-C Answer Date Recorded Q1: How often do you have a drink containing alc ohol? Monthly or less 01/02/2025 Q2: How many drinks containi ng alcohol do you have on a typical day when you are drinking? 1 or 2 01/02/2025 Q3: How often do you have si x or more drinks on one occasion? Never 01/02/2025 Comments No Sex and Gender Information Value Date Recorded Sex Assigned at Not on file Legal Sex Female 11:30 PM REHAB RN Gender Identity Female 09/15/2020 9:39 AM CDT Sexual Orientation Straight 09/15/2020 9: 39 AM CDT Obstetrics History Para Term AB IAB SAB Ectopic Multiple Livin g Live Births 3 3 3 Date Outcome GA Total Labor Labor/2nd/3rd Weight Sex Type Anes PTL Page A1 A5 Name Clin Term Term Term Last Filed Vital Signs Vital Sign Reading Time Taken Comments Blood Pressure 118/72 01/02/2025 8:06 AM CDT Pulse 106 01/02/2025 8:06 AM CDT Temperature 36.1 C (96.9 F) 01/02/2025 8:06 AM CDT Respiratory Rate 16 01/02/2025 8:06 AM CDT Oxygen Saturation 97% 01/02/2025 8:06 AM CDT Inhaled Oxygen Concentration - - Weight 90 kg (198 lb 6.4 oz) 01/02/2025 8:06 AM CDT Height 160 cm (5' 3) 01/02/2025 8:06 AM CDT Body Mass Index 35.14 01/02/2025 8:06 AM CDT Plan of Treatment Health Maintenance Due Date Last Done Comments Hepatitis C Screening 1970 Hepatitis B Screening 1988 Breast Cancer Screening-Mammogram 08/25/2024 08/26/2023, 05/19/2022, 11/03/2020, Additional history exists Covid-19 Vaccine ( - 2024-2 6 season) 2024 12/13/2023, 02/11/2023, 05/24/2022, Additional history exists Hemoglobin A1C 03/28/2025 09/25/2024, 08/19, 02/04/2022, Additional history exists Albumin Creatinine Ratio, Urine 09/25/2025 Lipid Panel 09/25/2025 09/25/2024, 08/19, 02/04/2022, Additional history exists eGFR 09/25/2025 09/25/2024, 08/19, 02/04/2022, Additional history exists Regular Well Visit/Exam 18-64 09/28/2025, 08/19/2023, 02/01/2022, Additional history exists Dilated Eye Exam 10/09/2025 10/09/2024, 11/30/2023 Depression Screening 01/02/2026 01/02/2025, 09/28/2024, 09/28/2024, Additional history exists Foot Exam 01/02/2026 01/02/2025, 09/09/2023 DTaP/Tdap/Td Vaccine (3 - Td or Tdap) 04/13/2027 04/13/2017, 05/29/2007 Colon Cancer Screening-Colonoscopy 10/25/20282023, 11/06/2020 Zoster Vaccine Completed 12/23/2020, 09/12/2020 Pneumococcal vaccine <65 Completed 07/23/2024 Influenza Vaccine Completed 01/02/2025, , 02/11/2023, Additional history exists Medical Devices Implanted Type Area Public Policy Associate Device Identifier Shelf Expiration Date Model / Serial / Lot [employer] [id number] 3 Hole Anatomic Graft Window Radius Right Wrist Volar Narrow - [id number] Implanted:Qty: 1 on 02/06/2021 by Олег Ram MD at [facility] Plate Right: Wrist [employer] [id number] -[id number] / / [employer] [id number] Low Profile Screws 3.5mm 16mm Self Tap Solid Hexalobe Midfoot - [id number] Implanted:Qty: 1 on 02/06/2021 by Олег Ram MD at [facility] Screw Right: Wrist [employer] AR-8935-16 / / [employer] [id number] Screw Kreulock Compression Titanium 2.4x18mm - [id number] Implanted:Qty: 2 on 02/06/2021 by Олег Ram MD at [facility] Screw Right: Wrist [employer] AR-[id number] -18 / / [employer] [id number] Screw Kreulock Compression Titanium 2.4x20mm - [id number] Implanted:Qty: 2 on 02/06/2021 by Олег Ram MD at [facility] Screw Right: Wrist [employer] AR-[id number] -20 / / [employer] [id number] Screw Kreulock Compression Titanium 3.5x14mm - [id number] Implanted:Qty: 1 on 02/06/2021 by Олег Ram MD at [facility] Screw Right: Wrist [employer] AR-8935CL- 12 / / [employer] [id number] Screw Kreulock Compression Titanium 3.5x14mm - [id number] Implanted:Qty: 1 on 02/06/2021 by Олег Ram MD at [facility] Screw Right: Wrist [employer] [id number]- 14 / / Procedures Procedure Name Priority Date/Time Associated Diagnosis Comments HM DIABETES EYE EXAM Routine 10/09/2024 10:50 AM CDT COMPREHENSIVE METABOLIC PANEL Routine 09/25/2024 8:11 AM CDT Mixed hyperlipidemia Health maintenance examination Attention deficit hyperactivity disorder (ADHD), predominantly inattentive type Type 2 diabetes mellitus with hyperlipidemia (HCC) HEMOGLOBIN A1C Routine 09/25/2024 8:11 AM CDT Mixed hyperlipidemia Health maintenance examination Attention deficit hyperactivity disorder (ADHD), predominantly inattentive type Type 2 diabetes mellitus with hyperlipidemia (HCC) LIPID PANEL Routine 09/25/2024 8:11 AM CDT Mixed hyperlipidemia Health maintenance examination Attention deficit hyperactivity disorder (ADHD), predominantly inattentive type Type 2 diabetes mellitus with hyperlipidemia (HCC) ALBUMIN CREATININE RATIO, URINE Routine 09/25/2024 8:11 AM CDT Mixed hyperlipidemia Health maintenance examination Attention deficit hyperactivity disorder (ADHD), predominantly inattentive type Type 2 diabetes mellitus with hyperlipidemia (HCC) COLONOSCOPY Routine 10/26/2023 SCREENING MAMMOGRAM BILATERAL W FRANCISCO JAVIER Schedule Routine, Read Routine (OP Routine) 08/26/2023 2:40 PM CDT Screening mammogram for breast cancer from Last 3 Months or Most Recently Relevant to Health Maintenance Results * DIABETES EYE EXAM (10/09/2024 10:50 AM CDT) SCRIBED DIABETIC DILATED EYE EXAM Normal [facility] Provider MD HEALTH MAINTENANCE Final Result * Albumin Creatinine Ratio, Urine (09/25/2024 8:11 AM CDT) Creatinine, ur 93 20 - 275 mg/dL [facility] Microalbumin, ur 0.2 See Note: mg/dL [facility] Comment: Reference Range: Reference Range Not established Microalbumin/creat ratio 2 <30 mg/g creat [facility] Comment: The ADA defines abnormalities in albumin excretion as follows: Albuminuria Category Result (mg/g creatinine) Normal to Mildly increased <30 Moderately increased 30-299 Severely increased > OR = 300 The ADA recommends that at least two of three specimens collected within a 3-6 month period be abnormal before considering a patient to be within a diagnostic category. Urine 09/25/2024 8:11 AM CDT 09/25/2024 8:12 AM CDT Narrative [facility] - 09/26/2024 2:36 AM CDT FASTING:YES FASTING: YES Flavia MANE LAB URINE ORDERABLES Final Res ult Performing Organization Address City/[facility]/ZIP Co de Phone Number [facility] [address] [address] * (ABNORMAL) Hemoglobin A1c (09/25/2024 8:11 AM CDT) Hgb A1C 6.3(H) <5.7 % of total Hgb [facility] Comment: For someone without known diabetes, a hemoglobin A1c value between 5.7% and 6.4% is consistent with prediabetes and should be confirmed with a follow-up test. For someone with known diabetes, a value <7% indicates that their diabetes is well controlled. A1c targets should be individualized based on duration of diabetes, age, comorbid conditions, and other considerations. This assay result is consistent with an increased risk of diabetes. Currently, no consensus exists regarding use of hemoglobin A1c for diagnosis of diabetes for children. Blood 09/25/2024 8:11 AM CDT 09/25/2024 8:12 AM CDT Narrative [facility] - 09/26/2024 2:36 AM CDT FASTING:YES FASTING: YES Flavia MANE LAB BLOOD ORDERABLES Final Res ult Performing Organization Address [facility]/ZIP Co de Phone Number [facility] [address] [place] [address] * (ABNORMAL) Lipid panel (09/25/2024 8:11 AM CDT) Cholesterol 187 <200 mg/dL [facility] HDL 49(L) > OR = 50 mg/dL [facility] Triglycerides 116 <150 mg/dL [facility] LDL 116(H) mg/dL (calc) [facility] Comment: Reference range: <100 Desirable range <100 mg/dL for primary prevention; <70 mg/dL for patients with CHD or diabetic patients with > or = 2 CHD risk factors. LDL-C is now calculated using the Ricco calculation, which is a validated novel method providing better accuracy than the Friedewald equation in the estimation of LDL-C. David SS et al. SONIDO. 2013;310(19): 8678-1700 (http://education.[employer].Activity Rocket/faq/SOF492) Chol/HDL ratio 3.8 <5.0 (calc) [facility] Non-HDL, (LDL+VLDL) 138(H) <130 mg/dL (calc) [facility] Comment: For patients with diabetes plus 1 major ASCVD risk factor, treating to a non-HDL-C goal of <100 mg/dL (LDL-C of <70 mg/dL) is considered a therapeutic option. Blood 09/25/2024 8:11 AM CDT 09/25/2024 8:12 AM CDT Narrative [facility] - 09/26/2024 2:36 AM CDT FASTING:YES FASTING: YES us Flavia MANE LAB BLOOD ORDERABLES Final Res ult [facility] [address] [place] [address] * (ABNORMAL) Comprehensive metabolic panel (09/25/2024 8:11 AM CDT) Glucose 126(H) 65 - 99 mg/dL [facility] Comment: Fasting reference interval For someone without known diabetes, a glucose value >125 mg/dL indicates that they may have diabetes and this should be confirmed with a follow-up test. BUN 10 7 - 25 mg/dL [facility] Creatinine 0.97 0.50 - 1.03 mg/dL [facility] eGFR 69 > OR = 60 mL/min/1.7 3m2 [facility] BUN/creat ratio SEE NOTE: 6 - 22 (calc) [facility] Comment: Not Reported: BUN and Creatinine are within reference range. Sodium 139 135 - 146 mmol/L [facility] Potassium, pl 4.2 3.5 - 5.3 mmol/L [facility] Chloride 104 98 - 110 mmol/L [facility] CO2 27 20 - 32 mmol/L [facility] Calcium 9.0 8.6 - 10.4 mg/dL [facility] Protein, sr 6.7 6.1 - 8.1 g/dL [facility] Albumin 4.0 3.6 - 5.1 g/dL [facility] GLOBULIN 2.7 1.9 - 3.7 g/dL (calc) [facility] Alb/glob ratio 1.5 1.0 - 2.5 (calc) [facility] Bilirubin, total 0.3 0.2 - 1.2 mg/dL [facility] Alk phos 83 37 - 153 U/L [facility] AST 29 10 - 35 U/L [facility] ALT (SGPT) 29 6 - 29 U/L [facility] Blood 09/25/2024 8:11 AM CDT 09/25/2024 8:12 AM CDT Narrative [facility] - 09/26/2024 2:36 AM CDT FASTING:YES FASTING: YES Flavia MANE LAB BLOOD ORDERABLES Final Res ult DANNY [facility] [address] [place] [address] * COLONOSCOPY (10/26/2023) Scribed Colonoscopy Normal Historical Provider HEALTH MAINTENANCE Final Result * Screening Mammogram Bilateral W Francisco Javier (08/26/2023 2:40 PM CDT) Anatomical Region Laterality Modality Breast Bilateral Mammography Impressions 08/26/2023 2:44 PM CDT BI-RADS ATLAS category (overall): 1 - Negative There is no mammographic evidence of malignancy. A 1 year screening mammogram is recommended. The patient has been or will be contacted. We recommend annual screening mammography for women at average risk of breast cancer beginning at age 40, based on guidelines of the [employer] (ACR Practice Parameter for the Performance of Screening and Diagnostic Mammography) and [employer]. For women with and elevated risk of breast cancer, please refer to the ACR Practice Parameter for specific screening recommendations. The patient will be entered into a reminder system with a target due date of 1 year for her next screening exam. Narrative 08/26/2023 2:44 PM CDT Screening Mammogram Bilateral W Francisco Javier: 08/26/23 The study was acquired using full field digital technology and interpreted from soft copy. 2D digital mammographic views, as well as 3D digital tomosynthesis were performed in the CC and MLO projections. CLINICAL: Screening mammogram for breast cancer. No relevant medical history has been documented for this patient. No known family history of breast cancer. COMPARISONS: 05/19/2022 SCREENING MAMMOGRAM BILATERAL W FRANCISCO JAVIER 11/03/2020 Screening Mammogram Bilateral W Francisco Javier 05/14/2019 Screening Mammogram Bilateral W Francisco Javier BREAST TISSUE: The breasts are almost entirely fatty. FINDINGS: There is no new suspicious finding in either breast on mammogram. Flavia MANE IMG MAMMO PROCEDURES Final Res ult from Last 3 Months or Most Recently Relevant to Health Maintenance Insurance [facility] CLAIMS [facility] CLAIMS Care Teams Rn Enterostomal Relationship Specialty Start Date End Date Flavia Ramirez PA [address] [place] [phone] PCP - General Physician Underwear Cutter 08/17/18 Duc Rapp MD [address] [place] [phone] Consulting Physician Family Medicine 08/17/18
--- OUTSIDE RECORDS SUMMARY | 2025-02-17 18:58 | XMS_ITS | Encounter Summary ---
Author Organization [facility] Facility Care Team Providers Care Resource Room Teacher Name Role Phone Duc Rapp MD Primary Care Provid er Flavia Ramirez Unavailable [phone] Flavia Ramirez Primary Care Provider [phone] Duc Rapp MD Unavailable + [phone] Encounter Details Date Type Department Care Team (Latest Contact Info) Description 02/05/2017 Orders Only [facility]INCON[facility] ProviderWale MD [address] [place] [id number] Social History Tobacco Use Types Packs/Day Years Used Date Smoking Tobacco: Never Assessed Comments Unknown Sex and Gender Information Value Date Recorded Sex Assigned at Not on file Legal Sex 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 Historical Provider Final Res ult documented in this encounter Visit Diagnoses Not on filedocumented in this encounter Additional Health Concerns Infection Onset Date Last Indicated Resolved Time COVID: Suspected 11/28/2020 11/28/2020 11/29/2020 1:45 AM CDT documented as of this encounter Care Teams Resource Room Teacher Relationship Specialty Start Date End Date Duc Rapp MD PCP - General Family Medicine 08/09/18 08/16/18 Flavia Ramirez PA [address] [place], [place] [phone] PCP - General Physician Lithographic Press Operator Apprentice 08/17/18 Flavia Ramirez PA [address] [place], [place] [phone] Physician Lithographic Press Operator Apprentice Physician Lithographic Press Operator Apprentice 08/09/18 Duc Rapp MD Consulting Physician Family Medicine 08/17/18 documented as of this encounter
== END 2025-02-17 19:24 | disposition home or self-care (01) ==
LOC: ANHED 18:56
PROVIDERS: Emergency Provider Emergency Medicine; PCP Physician Assistant
DX: S93.525A Sprain of metatarsophalangeal joint of left lesser toe(s), initial encounter (principal); X58.XXXA Exposure to other specified factors, initial encounter
CPT/HCPCS: 73630; 99283